=== PATIENT | male | born 1985 | race Caucasian/White ===

== ENCOUNTER 2021-02-07 11:08 | Inpatient (IN) | payer OTHER ==
[~2021-02-07] VITALS: Ht 193 cm; Wt 204.1 kg
--- NOTE | ~2021-02-07 | HC ---
[facility] [place] [address] CONSULTATION Name: ANA CABELLO JR Room #: 356-P ADM IN M.R.#: [id number] Admission: 02/07/21 Attend Phys: Khalif Xiong MD Discharge: Date of : 86 Report #: [id number] THIS REPORT FOR: cc: EDWIGE VYAS JENNIFER A. DO Smithson, David G. MD ~ DATE OF SERVICE: 02/13/2021 HISTORY OF PRESENT ILLNESS: The patient is a 35-year-old white male with a history of left fifth toe cellulitis. COVID positive. [facility], seen by Podiatry on 02/08/2021. He underwent a left fifth toe amputation including metatarsal head by Podiatry, Dr. Jeffery. He is limited to partial weightbearing of the heel in a surgical shoe. He has a prior right jqjjb-vcd-vmwi amputation with prosthesis. We are seeing him in rehabilitation medicine consultation. PAST MEDICAL HISTORY: Diabetes mellitus, severe vasculopathy, morbid obesity, noncompliance. MEDICATIONS: Please see the full medication listing. HABITS: Tobacco daily. SOCIAL HISTORY: He has been staying at his girlfriend's house. She apparently is a paid caregiver through the state. He notes that he is no longer on his good of terms with her. He has been to acute rehab at [place] in the past. REVIEW OF SYSTEMS: Did not offer any current complaints of chest pain, shortness of breath or abdominal discomfort. PHYSICAL EXAMINATION: GENERAL: He is a pleasant 35-year-old morbidly obese white male in no obvious distress. He follows basic 1-step commands, calm, and cooperative. Of note, he is 6 feet 4 inches and weighs 450 pounds. VITAL SIGNS: Temperature 36.1, pulse 74, respirations 16, blood pressure 106/51. NEUROLOGIC: He has functional range of motion of both upper extremities without obvious focal weakness. He has the old right below-knee amputation and has the stump health care aide in place and has his prosthesis. He premorbidly ambulated with a cane and his prosthesis. His left foot is dressed post-surgically. No focal calf swelling. He has been min assist with sit to stand and has ambulated 20 feet with a cane, min assist utilizing the surgical shoe and his mmscu-cxh-hgwr prosthesis. ASSESSMENT: A 35-year-old male with the following problem list: 1. Left fifth toe cellulitis, status post left fifth [place] [address] CONSULTATION Name: ANA CABELLO Room #: 356-P [facility] IN ..#: [id number] Admission: 02/07/21 Attend Phys: Khalif Xiong MD Discharge: Date of : 87 Report #: [id number] on 02/08/2021. He is partial weightbearing with heel bearing shoes. 2. COVID positive status in COVID isolation. 3. Prior right blsba-bfh-eocg amputation with right lower extremity prosthesis. 4. Diabetes mellitus. 5. Morbid obesity. 6. History of severe vasculopathy. 7. Tobacco abuse. 8. Noncompliance. PLAN: [address] acute rehab beds are tight. The patient has been to [facility] in the past. This will be checked regarding this or other therapy options. His COVID status may be a problem in this regard, but we will need to see what the regulations are as he remains in COVID isolation. Thank you for asking us to assist in this patient's care. We will continue to follow along with you. By: 0925 [id number] Clay Deluca MD /nt
--- NOTE | ~2021-02-07 | HC ---
[facility] [place] [address] CONSULTATION Name: ANA CABELLO JR Room #: 356-P ADM IN M.R.#: [id number] Admission: 02/07/21 Attend Phys: Khalif Xiong MD Discharge: Date of : 86 Report #: [id number] THIS REPORT FOR: cc: EDWIGE VYAS JENNIFER A. DO Jetmore, Allen B. MD ~ DATE OF SERVICE: 02/12/2021 WOUND CARE CONSULTATION NOTE REASON FOR CONSULTATION: Status post left fifth toe amputation with metatarsal head resection in the setting of diabetes mellitus type 2, peripheral vascular disease, cellulitis of the toe and osteomyelitis. HISTORY OF PRESENT ILLNESS: The patient is a gentleman suffering from morbid obesity and diabetes mellitus type 2 and peripheral vascular disease who is status post right below-knee amputation for diabetic foot and vascular complications. He is status post left third toe ray amputation. He is a patient of the podiatric surgeon. The patient presented to [facility] with COVID positive and a left fifth toe with extreme cellulitis and osteomyelitis. He was taken to the operating room on 02/08/[address] Slade Jeffery and underwent left fifth toe amputation with metatarsal head resection. He is currently receiving IV antibiotics, piperacillin, vancomycin followed by the podiatric surgery team. Wound care was consulted. PAST MEDICAL HISTORY: Morbid obesity, tobaccoism, peripheral vascular disease, status post right below-knee amputation, status post left fifth ray amputation, recent COVID-19, diabetic neuropathy. PAST SURGICAL HISTORY: Right below-knee amputation, left third ray amputation, left fifth toe amputation. MEDICATIONS: Include Lantus insulin. PHYSICAL EXAMINATION: GENERAL: Shows a pleasant, alert young gentleman in no distress. VITAL SIGNS: No respiratory symptoms of COVID at this time. Mucous membranes are moist. ABDOMEN: Obese. EXTREMITIES: Shows healed right below-knee amputation. Examination of the left foot shows status post left third ray amputation. Surgical dressings are removed and there is seen a fresh left fifth toe amputation with nylon suture closure. There is moderate drainage onto the dressings, which are removed. There is some dried blood, drainage on the incision, which looks relatively clean. Xeroform dressing along with Optifoam, ABD and Kerlix dressing with an Carlos are placed. [address] [address] CONSULTATION Name: ANA CABELLO Room #: 356-P [facility] IN .R.#: [id number] Admission: 02/07/21 Attend Phys: Khalif Xiong MD Discharge: Date of : 86 Report #: [id number] PLAN: We will place an order for Aquacel silver to the incision site daily, cover with 4 x 4, Kerlix gauze and Carlos. Followup will likely be by his podiatric surgeons. Wound care team will follow. By: 1153 1858 Vidal Duncan MD /stephanie
[~2021-02-07 11:08] MED LIST: ASPIRIN325 PO; BACTRIM DS TAB1 EACH PO; CELEXA40 MG PO; CEPHALEXIN 500500 M3 PO; CIPRO500 MG PO; CLEOCIN HCL150 MG PO; CUBICIN500 MG IVPB; DAPTOMYCIN500 MG IV; FLAGYL500 MG PO; GLUCOTROL5 MG PO; HUMALOG100 UNIT/1 SUBQ; HUMULIN R100 UNIT/M SUBQ; HYDROCODONE-AP1 EAC6 PO; HYDROCODONE-APA1 TA1 PO; IBUPROFEN 400400 M2 PO; LANTUS SUBQ; LANTUS100 UNIT/M SUBQ; LASIX 20 MG TAB20 MG PO; METFORMIN HCL500 MG PO; NEURONTIN600 MG PO; NICOTINE TRANSD21 M1 TOP; NORCO 10-325 T1 EACH PO; NYAMYC15 GM TOP; OXYCODONE HCL 55 MG PO; OXYCODONE HCL10 MG PO; PENICILLIN VK250 MG PO; PERCOCET 10-321 EACH PO; PROZAC20 MG PO; SEROQUEL 50 MG50 MG PO; TRAMADOL 50 MG50 MG PO; ULTRAM 50MG TAB50 MG PO; VANCOMYCIN1.5 GM/253 IV; XANAX 0.5 MG0.5 MG PO; ZOFRAN ODT4 MG PO; ZYVOX600 MG PO
[2021-02-07 11:14] VITALS: BP 136/76
[2021-02-07 11:42] LABS: ABSOLUTE NEUTROPHILS 5.1 thou/uL (1.4-8.2); BASOPHILS 0.5 % (0.0-2.0); EOSINOPHILS 2.4 % (0.0-3.0); HEMATOCRIT 41.6 % (42.0-52.0); HEMOGLOBIN 13.7 gm/dL (14.0-18.0); LYMPHOCYTES 13.8 % (24.0-44.0); MCH 27.2 pg (26.0-34.0); MCHC 32.9 g/dL (28.0-37.0); MCV 82.6 fL (80.0-100.0); MONOCYTES 6.5 % (1.0-8.0); PLATELET COUNT 221 thou/uL (150-400); POLYS 76.8 % (36.0-66.0); RBC 5.04 mil/uL (4.50-6.00); RDW 15.1 % (10.5-14.5); WBC 6.6 thou/uL (4.0-11.0)
[2021-02-07 11:58] LABS: ANION GAP 6 mmol/L (7-16); BUN 17 mg/dL (7-18); CALCIUM 8.7 mg/dL (8.5-10.1); CHLORIDE 101 mmol/L (98-107); CO2 29 mmol/L (21-32); CREATININE 1.2 mg/dL (0.7-1.3); GLUCOSE 337 mg/dL (74-106); POTASSIUM 4.5 mmol/L (3.5-5.1); SODIUM 136 mmol/L (136-145)
[2021-02-07 12:04] LABS: SGOT 17 U/L (15-37); SGPT 24 U/L (16-63); TOTAL BILIRUBIN 0.4 mg/dL (0.2-1.0); TOTAL PROTEIN 7.2 g/dL (6.4-8.2); TROPONIN-I <0.06 ng/mL (<0.06)
--- NOTE | 2021-02-07 14:03 | NUR ---
PT STATES THAT THE BED IN THE ROOM BROKE AND HIS IV CAME OUT. BED IN SAME POSITION LAST TIME THIS RN WAS IN THE ROOM. PT STATES HE WANTS AN UBER AND WOULD LIKE TO LEAVE. DR HART AT BEDSIDE NOW
--- NOTE | 2021-02-07 14:10 | NUR ---
PT NOW AGREES TO STAY. WILL RESTART IV AND RESTART VANCOMYCIN
--- NOTE | 2021-02-07 15:44 | EKG ---
[facility] [employer] [place] [address] ELECTROCARDIOGRAM REPORT Name: ANA CABELLO Room #: 170-24 ADM IN M.R.#: [id number] Admission: 02/07/21 Attend Phys: Khalif Xiong MD Discharge: Date of : 86 Report #: [id number] [facility] ED Test Date: 2021-02-07 Test Time: 14:39:10 Pat Name: ANA CABELLO Department: Room: 170 Gender: M Molding Machine Operator: munira : 1985 Requested By: Kyaw Castañeda Order Number: [id number] MD: Alexey Zarco Measurements Intervals [place] Rate: 95 P: 69 CT: 147 QRS: 64 QRSD: 85 T: 32 QT: 347 QTc: 436 Interpretive Statements Sinus rhythm Probable left atrial enlargement Low voltage, precordial leads No previous ECG available for comparison Electronically Signed On 02-07-2021 15:44:34 CDT by Alexey Zarco [email or web address] <ELECTRONICALLY SIGNED> By: Alexey Zarco MD, [facility] 02/07/21 1544 [id number] [id number] Alxeey Zraco MD, FACC /EPI
[2021-02-08 06:05] LABS: HEMATOCRIT 42.7 % (42.0-52.0); HEMOGLOBIN 14.1 gm/dL (14.0-18.0); MCH 27.6 pg (26.0-34.0); MCV 83.5 fL (80.0-100.0); RBC 5.12 mil/uL (4.50-6.00); RDW 14.1 % (10.5-14.5); WBC 4.2 thou/uL (4.0-11.0)
[2021-02-08 06:25] LABS: APTT 27.4 Seconds (24.5-32.8); INR 0.95; PROTIME 10.4 Seconds (10.5-12.1)
[2021-02-08 06:26] LABS: CALCIUM 8.5 mg/dL (8.5-10.1); CREATININE 1.1 mg/dL (0.7-1.3); MAGNESIUM 2.2 mg/dL (1.8-2.4)
[2021-02-08 06:39] LABS: POTASSIUM 5.7 mmol/L (3.5-5.1)
[2021-02-08 07:15] VITALS: BP 137/79
[2021-02-08 07:25] VITALS: BP 128/68
--- NOTE | 2021-02-08 10:48 | NUR ---
AD,ISSION NOTE: PT ADMITTED ON 356, ALERT AND ORIENTED X4, DENIES ANY CHEST PAIN. HAS NUMBNESS AND TINGLING DUE TO DIABETES. LINE SUPERVISOR PLACED, SR. ON ROOM AIR, NO SIGNS OF DISTRESS NOTED. ENHANCED PRECAUTIONS IN PLACE. CONSENTS SIGNED. PT ORIENTED TO ROOM. ASSESSMENT AND ADMISSION COMPLETED. RIGHT LEG AMPUTATED BELOW THE KNEE, ALSO HAS 3RD LEFT TOE AMPUTATED. OSTEOMYELITIS ON THE LEFT 5TH TOE AND BLISTER ON THE RIGHT OUTER THIGH. PICTURES TAKEN. MORPHINE GIVEN FOR BACK AND TOE PAIN. CALL LIGHT AND TABLE WITHIN REACH. PT DENIES ANY NEED HILDA, WILL CONTINUE TO MONITOR.
[2021-02-08 12:00] VITALS: BP 157/82
--- NOTE | 2021-02-08 13:21 | NUR ---
RD consult related to obesity. Admit with redness, swelling toe, osteomyelitis and will likely require ampuation. Pt COVID+, unable to speak with. Has strong hx of noncompliance with his medical care, including poor diabetes control with complications. Hx right BKA, +tobacco use, class III extreme obesity. NPO at this time. Recommend advance to 2000 carb controlled diet after procedure and start terence bid.
[2021-02-08 14:42] LABS: CALCIUM 8.4 mg/dL (8.5-10.1); CREATININE 1.1 mg/dL (0.7-1.3)
[2021-02-08 14:43] LABS: POTASSIUM 4.7 mmol/L (3.5-5.1)
--- NOTE | 2021-02-08 15:09 | NUR ---
INITIAL ASSESSMENT: Received consult for discharge planning. Pt was at [facility] for outpatient appt with Dr. Jeffery at the [facility]. Pt was sent to the ER for evaluation for osteomyeltis. Pt had positive COVID test in the ER yesterday. Pt has not been vaccinated. Pt placed in Enhanced Isolation. Pt is afebrile and not requiring O2. Pt is on IV abx and IV steroids. ID consulted. Pt to have left 5th toe amputation this afternoon. PT/OT ordered to evaluate pt after surgery. Pt with hx right BKA and 3rd left toe amputation. SW spoke with pt via phone. Introduced role of SW. Pt is alert/orientated x 4. Pt reports he lives at home with his girlfriend, who is his paid caregiver through [place]. Pt has 3 hours and 15 minutes per day of caregiver services through [employer]. Pt has a knee scooter, cane, walker and w/c at home. Pt's PCP is Dr. Bre Steel in [place], [place]. Pt has used HH and home infusion in the past. Pt has gone to outpatient infusion at [facility] and has been to the inpt acute rehab unit at [place] in the past. Pt states he is agreeable with post-acute services if needed. Plan is for pt to discharge home when medically stable. YURI is following to assist as needed with discharge planning.
[2021-02-08 15:53] VITALS: BP 140/95
--- NOTE | 2021-02-08 17:33 | NUR ---
Pt taken down to surgery.
[2021-02-08 19:43] VITALS: BP 138/85
[2021-02-08 21:54] VITALS: BP 124/84
--- NOTE | 2021-02-08 23:35 | NUR ---
PT RETURNED FROM SURGERY AT CHANGE OF SHIFT. PT CURSING YELLING HOSTILE ON PHONE TO SOMEONE. PT CALM AND APPROPRIATE WITH NURSING STAFF. PT DENIES FEELING IN L FOOT DUE TO NEUROPATHY. L FOOT WITH EDEMA, ANIKA WRAP SURGICAL DRESSING. L FOOT ELEVATED IN BED. PT IS OBESE, RBKA, LUNGS DIMINISHED. PT ORDERING FOOD ON PHONE. PT COMPLIANT WITH MEDS AND HS SNACK. PT DID HAVE FOOD BROUGHT IN AND DELIVERED FROM FRIEND. PT REDIRECTED BY SECURITY TO LOWER VOICE TONE WHEN ON PHONE WITH GIRLFRIEND, OTHER PATIENTS COMPLAINING. PT TALKING TO HIS FRIEND ABOUT HAVING HIS HOUSE BLOWN UP SO GIRLFREIND CAN NOT USE HIM FOR PAYING FOR ALL OF THE BILLS FOR HER AND HER DAUGHTER. PT STATED HIS GIRLFRIEND IS NOT ANSWERING HER PHONE, DISCUSSED HER PREVIOUS AFFAIRS AND USING HIS DRUGS AND INVITING PEOPLE OVER THAT HE DOES NOT APPROVE OF. PT IS LABILE ANGRY YELLING CURSING THREATENING, THEN TEARFUL AND CRYING. PRN FOR ANXIETY PROVIDED. PT REPORTS CHRONIC BACK PAIN AND NEUROPATHY PAIN, REQUESTED MORPHINE AND PROVIDED.
[2021-02-09 04:34] VITALS: BP 143/76
--- NOTE | 2021-02-09 05:49 | NUR ---
L FOOT REMAINS DRY AND WRAPPED IN GAUZE, PT MAINTAINED ELEVATION OF FOOT. PT DENIES BEING ABLE TO FEEL TOUCH DUE TO NEUROPATHY. GREAT TOE CONTINUES WITH POSITIVE CIRCULATION CHECK.
[2021-02-09 08:08] VITALS: BP 142/98
[2021-02-09 11:48] VITALS: BP 173/91
--- NOTE | 2021-02-09 12:15 | HC ---
[facility] [place] [address] CONSULTATION Name: ANA CABELLO JR Room #: 356-P ADM IN M.R.#: [id number] Admission: 02/07/21 Attend Phys: Khalif Xiong MD Discharge: Date of : 86 Report #: [id number] THIS REPORT FOR: cc: EDWIGE VYAS JENNIFER A. DO Barry, Joseph W. MD ~ DATE OF SERVICE: 02/08/2021 INFECTIOUS DISEASE CONSULTATION ATTENDING PHYSICIAN: Dr. Xiong. REASON FOR EVALUATION: Left fifth toe chronic osteomyelitis, also positive COVID-19 infection. HISTORY OF PRESENT ILLNESS: Chart reviewed. The patient examined. This is a 35-year-old known to myself has longstanding diabetes mellitus that has been not well controlled, although improved more recently, has had a previous right below-knee amputation. He developed an injury sustaining a wound involving his lateral aspect of his left fifth toe within the last 2-3 weeks. He generally was improving. He felt it until he developed a cough and was confirmed to have COVID-19 infection. Due to progressive inflammatory changes noted in the toe, he was evaluated in the Emergency Room, was found to have elevated inflammatory markers as well as MRI evidence of changes suspicion of osteomyelitis involving the fifth toe, also found to have a positive coronavirus testing. At this point, denies significant pulmonary related complaints. He is scheduled to undergo operative toe amputation later today. Blood cultures collected at the time of admission are sterile thus far. He was empirically started on combination therapy with Zosyn and vancomycin. Again, denies any GI-related complaints at this point. ALLERGIES: None known. MEDICATIONS: Include gabapentin, dexamethasone, famotidine, vancomycin, Zosyn, zinc, p.r.n. analgesics. PAST MEDICAL HISTORY: As described above, diabetes mellitus has been complicated by peripheral neuropathy, previous chronic ulcers with chronic osteomyelitis, status post right below-knee amputation of third left toe as well, chronic anemia, morbid obesity. SOCIAL HISTORY: Smokes cigarettes, uses marijuana on a daily basis. Occasional ethanol. FAMILY HISTORY: Noncontributory. [facility] [address] [place] [address] CONSULTATION Name: ANA CABELLO Room #: 356-P [facility] IN ..#: [id number] Admission: 02/07/21 Attend Phys: Khalif Xiong MD Discharge: Date of : 86 Report #: [id number] REVIEW OF SYSTEMS: Otherwise, unremarkable 10-point review of systems. PHYSICAL EXAMINATION: GENERAL: He is alert, cooperative, mild to moderate distress. He is not dyspneic at rest. He is morbidly obese. VITAL SIGNS: Temperature 98.2, pulse 97, respirations 18, blood pressure 140/95. SKIN: Warm, dry, no rashes. HEENT: Normocephalic. Extraocular muscles intact. NECK: Supple. LUNGS: Diminished overall, few crackles at the bases. HEART: Distant, regular, borderline tachycardic. I do not appreciate any murmur. ABDOMEN: Obese, firm, nontender. EXTREMITIES: Right above-knee amputation generally be healed. There is a superficial eschar laterally. In the left foot fifth toe, there is some moderate degree of inflammation noted. There appears to be a puncture type lesion over the lateral aspect. There is no expressible material at this point. GENITOURINARY AND RECTAL: Deferred. LABORATORY DATA: Electrolytes: Sodium 141, potassium 4.7, chloride 103, bicarbonate is 20, anion gap of 10, BUN and creatinine 18 and 1.1, glucose is 321. Sed rate of 52. Blood cultures sterile thus far. CRP elevated at 56.9. CBC: White count of 4.2, H and H 14.1 and 42.7, platelets of 228. Arterial Doppler evidence of focal stenosis. MRI noted extended inflammatory changes noted throughout the extent of the fifth toe. Coronavirus testing was positive. ASSESSMENT AND PLAN: 1. Left fifth toe osteomyelitis, pending toe amputation. 2. Diabetes mellitus with severe sequelae including peripheral neuropathy, previous right below-knee amputation. 3. Coronavirus infection without evidence of respiratory distress and normal radiograph. We will plan to continue empiric therapy with combination of antibacterials at this point. We will follow up postoperatively. We will add incentive spirometry. Continue therapy with corticosteroids. We will hold on additional therapy such as remdesivir with a lack of early clinical evidence of acute pneumonitis, monitor expectantly, certainly could add to the regimen as needed. <ELECTRONICALLY SIGNED> By: Yeison Herrmann MD 02/09/21 1215 1508 [id number] Yeison Herrmann MD /nt
--- NOTE | 2021-02-09 15:40 | NUR ---
SW reviewed chart and spoke with nursing and attending physician. Pt remains in Enhanced Isolation due to COVID. Pt is POD#1 left 5th toe amputation. Pt remains on IV abx. Pt asking to speak with SW about discharge. SW placed call to pt's cell phone. Pt was very upset and stating he wanted to leave AMA because of some issues with his mother. SW offered to call pt's mother. Per pt, she had called the police and stated to them that pt is suicidal. Pt states that she is trying to get him into a mental health facility. Pt states that he will not allow SW to speak with his mother without being able to listen to our conversation. Pt called his mother, while on phone with SW to allow a 3-way conversation. Pt's mother did not answer. Voice message left. Pt became very agitated and upset during conversation. SW discussed case with attending physician and Director of Case Mgmt. Psych consult ordered to evaluate pt. Pt did calm down and is not cooperating with staff. PT/OT to be ordered to evaluate pt for discharge needs. Will need clarification regarding weight bearing status. YURI is following to assist as needed with discharge planning.
[2021-02-09 15:49] VITALS: BP 158/88
--- NOTE | 2021-02-09 17:36 | NUR ---
assumed care of pt at 0700. pt emotionally labile, regularly yelling on phone with family about matters he is not willing to discuss with staff since we cannot help him. only willing to hospice social worker. largely polite and cooperative with staff, but at times threatening to leave AMA since his "mother gives me no choice". physician aware. psych consulted. OK'd by Dr Jeffery to bear weight on heel with surgical shoe to take shower. Waiting on shoe to arrive from central service. IVF infusing per order. psych to resume patients home psych meds. wcm.
[2021-02-09 20:12] VITALS: BP 141/82
[2021-02-10 03:58] VITALS: BP 111/79
--- NOTE | 2021-02-10 05:57 | NUR ---
PT IS A/0X4. MOODS UP AND DOWN. COMPLAINTS ABOUT IVF GTT THEN STATING HIS IV SITE HURTING. PT REMOVED PIV. GOT SUPPLIES TO REPLACE TO ALLOW FOR POC. PT STATES HE WANTS TO SLEEP AND BE LEFT ALONE. DURING HOURLY ROUNDING PT UNWILLING TO ALLOW FOR IV PLACEMENT. COVID+. PT COMPROMISES OWN MEDICAL CARE AND IS UNWILLING TO HELP.
[2021-02-10 08:13] VITALS: BP 148/92
[2021-02-10 11:14] VITALS: BP 152/84
[2021-02-10 15:24] VITALS: BP 150/89
--- NOTE | 2021-02-10 15:55 | NUR ---
YURI reviewed chart and spoke with nursing and attending physician. Pt remains in Enhanced Isolation due to COVID. Pt is afebrile and not requiring O2. Pt is on IV abx and IV steroids. Psych consulted. SW spoke with pt via phone to discuss discharge plan. Pt states that he is working with his rn case manager through [employer] to find housing. SW discussed discharge plan from the hospital and pt states he is agreeable with post-acute placement. Pt states he would like to have therapy. SW discussed options: 5N v. SNF placement. SW explained need for 10-14 days of isolation prior to going to a SNF. No weekend discharge planned. Pt needs therapy evals and then 5N can eval pt on Saturday to determine if he will be a candidate. YURI updated attending physician. YURI is following to assist as needed with discharge planning.
[2021-02-10 19:53] VITALS: BP 159/68
--- NOTE | 2021-02-10 22:03 | NUR ---
PROVIDER CAPITAL CAMPAIGN FUNDRAISER NOTIFIED OF ELEVATED BS AND THAT SCALE, LANUTS AND METFORMIN PROVIDED. ALSO THAT PT CONTINUES TO EAT ICE CREAM AND SODA.
--- NOTE | 2021-02-10 22:43 | NUR ---
PT SITITNG UP IN BED, JOKING LAUGHING ON PHONE. PT CHEERFUL PLEASANT BUT LOUD WHEN TALKING WITH STAFF. LUNGS DIMINISHED. OBESE. RBKA, L FOOT ANIKA WRAP DRY INTACT, EDEMA GREAT TOE, POSITIVE CIRCULATION. IVF INTACT. PT REQUESTING SNACK. PT STATED HE NEEDS PLACEMENT BEFORE BEING DISCHARGED. FSBS ELEVATED AND TREATED, PROVIDER NOTIFIED. PT EDUCATED TO CALL FOR ASSISTANCE.
[2021-02-11 07:41] VITALS: BP 139/82
--- NOTE | 2021-02-11 11:01 | NUR ---
ASSUMED PT CARE AT SHIFT CHANGE, PT STATES HE FEELS MORE CALM TODAY. STATES HIS HOME SITUATION IS STILL 'NOT GOOD'. STATES PAIN IS CONTROLLED, DID NOT GET GOOD SLEEP. WISHES TO CONTINUE WORKING WITH SOCIAL WORK TO TRY TO HELP DC. NO OTHER COMPLAINTS OR CONCERNS AT THIS TIME. COMPLIANT WITH MORNING PRESCRIPTIONS EXCEPT DENIED NICOTINE PATCH.
[2021-02-11 11:04] VITALS: BP 161/73
[2021-02-11 16:09] VITALS: BP 149/101
--- NOTE | 2021-02-11 16:10 | NUR ---
NO ORDERS FOR WOUND CARE. THIS RN UNABLE TO GET DR TRAMMELL RECOVERY ANALYST/ANSWERING SERVICE. PER DR HART, OK TO CONSULT WOUND CARE. DR HART ALSO INFORMED OF PT BG.
[2021-02-11 20:13] VITALS: BP 200/91
--- NOTE | 2021-02-11 21:11 | NUR ---
PT DID NOT HAVE VANC TROUGH DONE AT NOON DOSE. DONE PRIOR TO 2100 DOSE, BY NURSE. CEO AND FOUNDER NOT IN HOUSE.
--- NOTE | 2021-02-12 01:51 | NUR ---
PT SITTING UP IN BED. CHEERFUL TALKING ON PHONE. ORDERING FOOD. L FOOT DRESSING INTACT, GENERALIZED EDEMA OBESE, LLE TOES FOOT EDEMATOUS, POSITIVE CIRCUTLATION CHECK. PT VERBALIZED PAIN WITH PHYSICAL THERAPY EARLIER IN DAY. PT REPORTED INCREASE IN BP DUE TO STRESS. PRN FOR ANXIETY PROVIDED. PRN FOR PAIN REQUESTED LLE. CALLS FOR ASSISTANCE.
[2021-02-12 04:10] VITALS: BP 145/86
[2021-02-12 07:51] VITALS: BP 119/61
[2021-02-12 11:38] VITALS: BP 152/92
[2021-02-12 16:32] VITALS: BP 144/86
[2021-02-12 16:34] VITALS: BP 144/86
--- NOTE | 2021-02-12 18:13 | NUR ---
PT PLEASANT TODAY, WAS PLEASED WOUND CARE PHYSICIAN WAS ABLE TO VISIT & CHANGE WOUND. [employer] AG ORDERED, PLACED IN STOCK DRIVER. DAILY DRESSING CHANGE. PT CONTINUES TO ORDER FOOD OR HAVE SNACKS DELIVERED BY FRIENDS. INSULIN SCALE INCREASED PER PROTOCOL. PT REPORTS DIARRHEA, PRN IMMODIUM GIVEN. IV DRESSING CHANGED, WRAPPED WITH COBAN PER PT REQUEST.
[2021-02-12 19:48] VITALS: BP 147/92
[2021-02-13 04:35] VITALS: BP 141/90
--- NOTE | 2021-02-13 06:12 | NUR ---
PROGRESS PT PLEASANT AND COOPERATIVE, DENIED NEED FOR PAIN MEDICATION STATES HE WILL CALL IF NEEDED. VOIDING QS, UP AD TIANNA VSS, TELE INTACT READING SR/ST. LUNGS CLEAR. ABDOMEN SOFT NO MORE DIARRHEA TONIGHT. VOIDING QS LARGE AMOUNT OF CLEAR YELLOW URINE. IV ANTIBIOTICS ADMINISTERED ORDERED. DRESSING TO LEFT FOOT C/D/I. ACCUCHECKS AND SSI CONTINUE.
[2021-02-13 07:45] VITALS: BP 106/51
[2021-02-13 11:09] VITALS: BP 138/86
--- NOTE | 2021-02-13 11:11 | PATH ---
[facility] [address] [place] [address] PATHOLOGY RPT PROCEDURE Name: ANA CABELLO JR Room #: 356-P ADM IN M.R.#: [id number] Admission: 02/07/21 Date of : 87 Discharge: Report #: [id number] Path Case #: [id number] LCA Accession Number: [id number] . 01 Material submitted: . PART A: toe - LEFT FOOT 5TH TOE. Modifiers: left, fifth PART B: foot - 5TH METATARSAL HEAD. Modifiers: left, fifth, METATARSAL . 01 Clinical history: . AMPUTATION OF TOES OSTEOMYELITIS LEFT FOOT CELLULITIS,COVID . 02 Diagnosis: A. Toe, left foot fifth toe, amputation: - Marked acute inflammation associated with osteonecrosis, consistent with acute osteomyelitis. - Skin and subcutaneous tissue with reactive changes. - Skin, bone and soft tissue margin viable and unremarkable. . B. Bone, fifth metatarsal head, resection: - Fragments of reactive bone without any acute inflammation. (IUV/db; 02/10/2021) LBQ 02/10/2021 1707 Local . 02 Electronically signed: . Samantha Martínez MD, Pathologist NPI- [id number] . 01 Gross description: . A. The specimen is received in formalin, labeled "Ana Cabello Jr., left fifth toe". Received is an amputated digit measuring 4.8 x 3.2 x 2.5 cm in greatest dimensions. The bone margin is smooth and concave in appearance, consistent with disarticulation. The bone and soft tissue margins are inked black. The nail is present displaying a pale araujo and grossly unremarkable appearance. On the lateral aspect of the specimen, there is a well-defined light araujo lesion measuring 1.0 x 0.8 cm, which is 1.2 cm from the closest skin margin. Within the lesion there is a circular defect measuring 0.4 x 0.4 cm, which probes down to the underlying bone. The specimen is submitted phlebotomy services representative as follows: . A1 horizontal cross-section through lesion, to include underlying bone, following decalcification A2 longitudinal cross-section through bone margin, following decalcification. . B. The specimen is received in formalin, labeled "Ana Cabello Jr., fifth [address] [address] PATHOLOGY RPT PROCEDURE Name: ANA CABELLO JR Room #: 356-P ADM IN M.R.#: [id number] Admission: 02/07/21 Date of : 87 Discharge: Report #: [id number] Path Case #: [id number] metatarsal head". The source is further designated on the demographic sheet as, "left foot". Received is an irregular segment of bone measuring 2.3 x 1.9 x 0.8 cm in greatest mentions. One margin is blunt in appearance, consistent with transection, and is inked black. The opposite margin is smooth to irregular in contour and predominately convex in appearance, consistent with disarticulation. Slot Router cross-sections are submitted in cassette B1, following decalcification. (CAA; 02/09/2021) QAC/QA 02/09/2021 1309 Local . 02 Pathologist provided ICD-10: M87.878, M89.9, L03.032 . 02 CPT . 544163, 362315, 751728, 452380 Specimen Comment: A courtesy copy of this report has been sent to [phone] Specimen Comment: [phone], Specimen Comment: Report sent to , DR HART / DR VYAS Performed at: [address], [place], [place] [id number] MD Davi Schmidt MD Phone: [phone] Performed at: [address] [id number] MD Samantha Martínez MD Phone: [phone]
--- NOTE | 2021-02-13 13:56 | NUR ---
DISCHARGE NOTE: YURI reviewed chart and spoke with nursing and attending physician. Pt remains in Enhanced Isolation due to COVID. Pt is afebrile and not requiring O2. Pt is on IV abx. Wound care consulted. YURI discussed case with [facility] director of pediatric rehabilitation, who states they are able to accept pt. Pt will remain in his room on 3[facility] for acute rehab services. Pt is ready to d/c to rehab status today. YURI spoke with pt via phone. Provided update to pt regarding [facility] acceptance. Pt is agreeable with plan to do rehab at the hospital. Pt states he is working on finding housing. Pt states on Feb 21, he will have the funds to go stay in a hotel if housing is not in place. Pt is working with [facility] on finding housing. YURI explained that team conferences are held on Saturday afternoons. Rehab unit CM will follow up with pt regarding discharge timeframe and discharge needs. YURI updated pt's nurse regarding pt's change to rehab status. YURI is available to assist should needs arise.
[2021-02-13] MEDS ORDERED: ZINC SULFATE50 MG PO (15:15)
[2021-02-13] MEDS ORDERED: LORAZEPAM 0.50.5 MG PO (15:15)
[2021-02-13] MEDS ORDERED: ACETAMINOPHEN325 M1 PO (15:15)
[2021-02-13] MEDS ORDERED: VITAMIN D325 MC1 PO (15:15)
[2021-02-13] MEDS ORDERED: HUMALOG100 UNIT/1 SUBQ (15:15)
[2021-02-13] MEDS ORDERED: VANCOMYCIN1.25 GM/12 IV (15:15)
[2021-02-13] MEDS ORDERED: ENOXAPARIN40 MG/0.1 SUBQ (15:15)
[2021-02-13] MEDS ORDERED: WELLBUTRIN SR100 MG PO (15:15)
[2021-02-13] MEDS ORDERED: PEPCID20 MG PO (15:15)
[2021-02-13] MEDS ORDERED: NICOTINE1 EACH TRANSDERM (15:15)
[2021-02-13] MEDS ORDERED: MEDROLDOSEPACK PO ×4 (15:15)
[2021-02-13] MEDS ORDERED: LOPERAMIDE 2 MG2 M1 PO (15:15)
[2021-02-13] MEDS ORDERED: EFFEXOR XR37.5 MG PO (15:15)
[2021-02-13] MEDS ORDERED: HYDROCODON-ACE1 EAC7 PO (15:15)
[2021-02-13] MEDS ORDERED: ZOSYN 3.373.375 GM/1 IV (15:15)
[2021-02-13] MEDS ORDERED: ACEROLA C500 MG PO (15:15)
[2021-02-13 15:48] VITALS: BP 138/86
== END 2021-02-13 17:34 | DRG 853 ==
LOC: ER 11:08 → EROBS 13:23 → 3W 13:23
PROVIDERS: Emergency Medicine; ADMIT Internal Medicine; ATTEND Internal Medicine
PROC: 0Y6N0ZF Detachment at Left Foot, Partial 5th Ray, Open Approach (ICD-10-PCS; principal; 2021-02-08)
DX: A41.9 Sepsis, unspecified organism (principal); U07.1 COVID-19; M86.8X7 Other osteomyelitis, ankle and foot; Z68.43 Body mass index [BMI] 50.0-59.9, adult; M31.9 Necrotizing vasculopathy, unspecified; E11.69 Type 2 diabetes mellitus with other specified complication; L03.032 Cellulitis of left toe; E11.42 Type 2 diabetes mellitus with diabetic polyneuropathy; F17.210 Nicotine dependence, cigarettes, uncomplicated; E11.51 Type 2 diabetes mellitus with diabetic peripheral angiopathy without gangrene; E66.01 Morbid (severe) obesity due to excess calories; F41.9 Anxiety disorder, unspecified; F12.90 Cannabis use, unspecified, uncomplicated; Z89.511 Acquired absence of right leg below knee; Z79.4 Long term (current) use of insulin; Z79.899 Other long term (current) drug therapy; Z91.14 Patient's other noncompliance with medication regimen
CPT/HCPCS: 10879; 50101; 50386; 50951; 56524; 56527; 58585; 62110; 62900

== ENCOUNTER 2021-02-13 15:35 | Inpatient (IN) | payer OTHER ==
[~2021-02-13] VITALS: Ht 193 cm; Wt 205.5 kg
--- NOTE | ~2021-02-13 | H ---
[facility] [place] [address] HISTORY AND PHYSICAL Name: ANA CABELLO JR Room #: 356-P ADM IN M.R.#: [id number] Admission: 02/13/21 Attend Phys: Clay Deluca MD Discharge: Date of : 87 Report #: [id number] THIS REPORT FOR: cc: EDWIGE VYAS JENNIFER A. DO Smithson,Clay Kerns MD ~ DATE OF SERVICE: 02/13/2021 HISTORY OF PRESENT ILLNESS: The patient is a 35-year-old male who has a history of left fifth toe cellulitis. He originally was admitted to [facility] on 02/07/2021. He was noted to be COVID positive. He was seen by podiatry on 02/08/2021 and underwent a left fifth toe amputation including the metatarsal head by podiatry, Dr. Samuel. He was limited to partial weightbearing of the heel in a surgical shoe. He has a prior right dtdml-[id number]-jeos amputation with prosthesis. He has had a significant functional decline from his premorbid status and was admitted for acute in-hospital inpatient rehabilitation. PAST MEDICAL HISTORY: Includes diabetes mellitus, severe vasculopathy, morbid obesity, noncompliance. MEDICATIONS: Please see the full medication listing. HABITS: Tobacco daily. SOCIAL HISTORY: He had been staying at his girlfriend's house, but they apparently had a falling out. He has had a paid caregiver through the [facility]. He is planning on moving into a motel. Apparently has a check that is coming on 02/21/2021. REVIEW OF SYSTEMS: No complaints of chest pain, shortness of breath, abdominal discomfort. PHYSICAL EXAMINATION: GENERAL: The patient was seen on 02/13/2021. He is a pleasant 35-year-old morbidly obese male, in no obvious distress, follows basic commands, cooperative, 6 feet 4 inches and weighs 450 pounds. VITAL SIGNS: Stable. HEENT: Appeared to be benign. NEUROLOGIC: Cranial nerves are grossly intact. He does have significant morbid obesity. CHEST: Sounded clear to auscultation. CARDIAC: Regular rate and rhythm. ABDOMEN: Bowel sounds positive, nontender. GENITOURINARY AND RECTAL: Deferred. EXTREMITIES: Functional range of motion of both upper extremities without obvious focal weakness. Tone appeared to be intact. 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 He premorbidly ambulated with a cane and his prosthesis. Left foot is dressed post-surgically. No focal calf swelling. The patient has been min assist coming to stand and has ambulated a short distance in the surgical shoe with his below-knee prosthesis and utilizing a cane. ASSESSMENT: A 35-year-old white male with the following problems: 1. Left fifth toe cellulitis, status post left fifth toe amputation by podiatry on 02/08/2021. He is partial weightbearing with heel bearing shoe. 2. Generalized debilitation and weakness. 3. COVID positive status in COVID isolation. 4. Prior right below-knee amputation with right lower extremity prosthesis. 5. Diabetes mellitus. 6. Morbid obesity. 7. History of severe vasculopathy. 8. Tobacco abuse. 9. Noncompliance. PLAN: The patient has been admitted for acute in-hospital inpatient rehabilitation. Please see the above previous and current functional status. As far as risk of complications, he has multiple medical comorbidities as noted above. Initial plan of care involves the interdisciplinary acute inpatient rehabilitation program. Measurable functional goals would be for the patient to become modified independent with transfers, mobility, ADLs, so that he can hopefully return to a home setting that will be arranged for that he is involved in arranging as well with case management. Prognosis is reasonably good with estimated length of stay probably around 7-10 days, potentially longer as warranted. Potential barriers would include his multiple medical comorbidities and decreased functional status. The patient meets diagnostic criteria for an acute in-hospital inpatient rehabilitation stay. He does meet the medical necessity criteria and we will have the [employer] sales consultant physicians follow. He does have the tolerance for therapies and has appropriate discharge goals back to the home setting. By: [id number] Clay Deluca MD /nt
--- NOTE | ~2021-02-13 | PLAN ---
[facility] [place] [address] REHAB UNIT PLAN OF CARE Name: ANA CABELLO JR Room #: 356-P ADM IN M.R.#: [id number] Admission: 02/13/21 Attend Phys: Clay Deluca MD Discharge: Date of : 87 Report #: [id number] THIS REPORT FOR: cc: EDWIGE VYAS JENNIFER A. DO Smithson,Clay Kerns MD ~ DATE OF SERVICE: 02/15/2021 PROGRESS NOTE/OVERALL PLAN OF CARE HISTORY OF PRESENT ILLNESS: The patient was seen back today in followup. He is in no distress. Temperature 36.7, pulse 80, respirations 16, blood pressure 159/90. He remains in strict COVID isolation. He is in reasonable spirits. His left foot is dressed. Cooperative. He has been working in therapies with transfer standby assistance; gait standby assistance, 32 feet with a front-wheeled walker. In occupational therapy, upper body dressing is supervision with lower body dressing with min assist. ASSESSMENT: 1. Left fifth toe cellulitis, status post amputation 02/08/2021, heel bearing only. 2. COVID positive status. 3. History of right below-knee amputation with right lower extremity prosthesis. 4. 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 5. Morbid obesity. 6. Peripheral neuropathy with severe vasculopathy. 7. Tobacco abuse. 8. Noncompliance. PLAN: The overall plan of care is based on the pre-admit screen and information garnered from therapy assessments. 1. Estimated length of stay is going to be next Saturday, 02/21. 2. Medical prognosis reasonably good. 3. Anticipated interventions includes the interdisciplinary acute inpatient rehabilitation program. 4. Anticipated functional outcomes would be for the patient to become modified independent with basic transfers, mobility and ADLs, so he could hopefully return to a home setting. 5. Discharge destination at this point is unknown. He is currently homeless, but is assessing his options. He apparently gets a check in on the and may be going to a hotel. 6. Expected therapy by discipline includes PT and OT 1-1/2 hours per day each, 5 days a week throughout the duration of the acute inpatient rehabilitation stay. [address] [address] REHAB UNIT PLAN OF CARE Name: ANA CABELLO Room #: 356-P [facility] IN [facility]#: [id number] Admission: 02/13/21 Attend Phys: Clay Deluca MD Discharge: Date of : 87 Report #: [id number] ADDENDUM: The patient's prognosis for significant practical improvement within a reasonable period of time appears good. Given the patient's complex medical condition and risk of further medical complication, rehabilitation services could not be safely provided at a lower level of care such as a senior care facility. By: [id number] Clay Deluca MD /stephanie
[~2021-02-13 15:35] MED LIST changes: +ACEROLA C500 MG PO; +ACETAMINOPHEN325 M1 PO; +EFFEXOR XR37.5 MG PO; +ENOXAPARIN40 MG/0.1 SUBQ; +HYDROCODON-ACE1 EAC7 PO; +LOPERAMIDE 2 MG2 M1 PO; +LORAZEPAM 0.50.5 MG PO; +MEDROLDOSEPACK PO; +NICOTINE1 EACH TRANSDERM; +PEPCID20 MG PO; +VANCOMYCIN1.25 GM/12 IV; +VITAMIN D325 MC1 PO; +WELLBUTRIN SR100 MG PO; +ZINC SULFATE50 MG PO; +ZOSYN 3.373.375 GM/1 IV
[2021-02-13 20:35] VITALS: BP 138/78
--- NOTE | 2021-02-13 22:49 | NUR ---
PT RESTING IN BED WATCHING TV. VERY HAPPY AND TALKATIVE. LUNGS DIMINISHED. OBESE, GENERALIZED EDEMA. LLE TOE EDEMA +1. DRESSING DRY AND INTACT. PT PROVIDED HS SNACK. IV INFILTRATED. ZOSYN AND ELIZABETHO NOT COMPLETED. PT PREVIOUSLY HAD IV PLACED BY IV TEAM, WILL HAVE DAY SHIFT CONTACT.
[2021-02-14 02:52] LABS: HEMATOCRIT 39.6 % (42.0-52.0); HEMOGLOBIN 12.8 gm/dL (14.0-18.0); MCH 27.2 pg (26.0-34.0); MCHC 32.3 g/dL (28.0-37.0); MCV 84.1 fL (80.0-100.0); RBC 4.72 mil/uL (4.50-6.00); RDW 14.9 % (10.5-14.5); WBC 11.8 thou/uL (4.0-11.0)
[2021-02-14 03:12] LABS: CALCIUM 8.9 mg/dL (8.5-10.1); CREATININE 1.1 mg/dL (0.7-1.3); POTASSIUM 4.5 mmol/L (3.5-5.1)
[2021-02-14 03:30] VITALS: BP 150/88
[2021-02-14 07:10] VITALS: BP 135/68
--- NOTE | 2021-02-14 09:03 | NUR ---
Nutrition: consult for supplements. S/p lt 5th toe amputation, physician noted some wound dehisence. Appears pt was discharged yesterday and then readmitted. Hx of rt BKA and non-compliance; notes of pt eating a lot of snacks including ice cream and soda. BG 200-400. Meds: solumedrol, vit C, vit D, pepcid, insulin, metformin, zinc. Wt up a few pounds from admit last week; class III morbid obesity. BUN 19, no recent albumin. Will send Brandon BID. Pt does not appear at significant nutrition risk at this time.
--- NOTE | 2021-02-14 12:33 | NUR ---
Team meeting, recommendation, refused shower with female OT. Chronic pain in his back and in foot. IV ABX. partial weight bearing left toe amp. hx of right bka. Homeless until get paid on february 21 to [facility]. HH ( pt, nursing for wound care,) he will need to resume cares with [facility]. He will need to get his dme equip from his ex-girlfriend's home. DC 02/21/21
[2021-02-14 14:01] LABS: FOLIC ACID 8.8 ng/mL (8.6-58.9)
[2021-02-14 16:43] VITALS: BP 148/93
[2021-02-14 20:40] VITALS: BP 130/82
--- NOTE | 2021-02-14 22:05 | NUR ---
PT RESTING IN BED WATCHING COMPUTER, TALKATIVE CHEERFUL. L FOOT DRESSING DRY AND INTACT, EDEMA +1. PT ORDERED OUTSIDE FOOD. LUNGS DIMINISHED.
[2021-02-15 06:06] LABS: GLYCOHEMOGLOBIN (HGB A1C) 9.9 % (4.8-5.6)
[2021-02-15 07:40] VITALS: BP 159/90
--- NOTE | 2021-02-15 13:54 | NUR ---
CARE ASSUMED THIS AM, ALERT AND ORIENTED X4, DENIES NAUSEA AND VOMITTING. PT CONTINUE TO BE ON ROOM AIR, NO SIGNS OF DISTRESS. REHABD STATUS, CONTINUE TO BE ON IV ABX. FALL PRECAUTIONS IN PLACE. DNEIES ANY NEEDS AT MOMENT, WILL CONTINUE TO TO MONITOR.
--- NOTE | 2021-02-15 23:13 | NUR ---
CONTINUES TO HAVE SIGNIFICANT PAIN TO LEFT FOOT AND TOE AREA. HIS PO ANALGESIC IS EFFECTIVE IN CONTROLLING THE PAIN. HE IS HAVING SNACKS DELIVERED TONIGHT FROM [employer]. HE HAS BEEN TOLD THAT THIS IS CONSIDERED JUNK FOOD. HE IS WANTING TO EAT WHAT HE WANTS. HE EXPRESSED CONCERN ABOUT HIS PLACEMENT
--- NOTE | 2021-02-16 02:33 | NUR ---
PT WITH MANY REQUESTS TONIGHT. HE HAS BEEN RELEASED FROM [facility]. WANTING TO KNOW IF HE CAN HAVE VISITORS. CONTINUES ON IV ANTIBIOTICS. SCHEDULED ANALGESIC EFFECITVE FOR PAIN CONTROL. HE IS CONCERNED ABOUT HIS PLACEMENT PLAN FOR DISCHARGE. HE CONTINUES TO EAT WITHOUT REGARD TO HIS BLOOD GLUCOSE CONTROL. HE ATE AND ENTIRE PIZZA AND A LITER OF COLA AT BEDTIME AFTER EATING DINNER FROM HOSPITAL. HE DOES NOT WANT TO TALK ABOUT BLOOD GLUCOSE CONTROL. HE ASKS FOR EXTRA INSULIN FOR EATING EXTRA FOOD.
[2021-02-16 05:00] VITALS: BP 135/78
[2021-02-16 07:43] VITALS: BP 147/91
[2021-02-16 22:03] VITALS: BP 141/87
[2021-02-17 00:02] VITALS: BP 140/49
--- NOTE | 2021-02-17 02:34 | NUR ---
TRANSFER TO 512 FOR FURTHER REHAB THERAPIES. PATIENT TRANSFERS FROM W/C TO BED WITH SBA. IS ABLE TO MANAGE PROSTHESIS FOR OLD RIGHT LEG AMPUTATION. HAS NEW LEFT HEEL WEIGHT BEARING SHOE FROM HEAD BUTLER IN ROOM AND STATES HE IS LEARNING TO USE IT WITH HIS WALKER DURING PT, THEY ARE HAVING HIM NOT USE HIS CANE FROM HOME AT THIS TIME SINCE HE IS BEARING WEIGHT ON HIS HEEL
[2021-02-17 08:00] VITALS: BP 139/78
--- NOTE | 2021-02-17 14:31 | NUR ---
ASSUMED CARE AT 0700. PATIENT IS ALERT AND ORIENTED X4. PATIENT IV OUT. PATIENT HAS RIGHT LEG AMPUTEE, AND LEFT 5TH TOE AMPUTEE. DRESSING AND ANIKA INTACT ON THE LEFT FOOT. PATIENT HAS ORTHO SHOE FOR LEFT TOE. IV ACESS OUT. DR. VASQUEZ HERE TO SEE PATIENT. PICC LINE ORDERED FOR MULTIPLE IV ABT'S. FALL AND SAFETY PROTOCOLS IN PLACE. C/O PAIN IN HIS LEFT FOOD. MEDICTCAED WITH PRN PAIN MED. CONTINUES TO PROGRESS SLOWLY TOWARDS D/C GOALS. WILL CONTINUE TO MONITER.
--- NOTE | 2021-02-17 16:50 | NUR ---
Cm visited with hailey via phone call. Rechecking to see if he had checked with his ex girl friend to see if can get his dme back and if [facility] and restart when have place to stay?. Yes i can, just have to have way to get it back, need to have place less then $1000. My dog can stay with friend for while per hailey. Will cont. dcp as needed for discharge. Will cont. to discuss during weekly team meeting.
[2021-02-17 20:13] VITALS: BP 109/54
--- NOTE | 2021-02-18 04:12 | NUR ---
ASSUMED CARE APPROX 0 EVENING 02/17. PT ALERT AND ORIENTED X4, APPROPRIATE AND COOPERATIVE. BANDAGE TO LEFT FOOT C/D/I. PT VOIDING PER URINAL. PT TOOK HS MEDS WITH WATER TOLERATING WELL. PT APPEARS TO BE SLEEPING SOUNDLY. BED ALARM ON AND CALL LIGHT IN REACH. WILL CONTINUE TO MONITOR.
[2021-02-18 08:00] VITALS: BP 143/94
[2021-02-18 08:15] VITALS: BP 143/94
--- NOTE | 2021-02-18 18:07 | NUR ---
ASSUMED CARE OF PT AT 0700. PT A&OX4. PT WILLINGLY WORKS WITH THERAPIES. PT NON COMPLIANT WITH WB STATUS. RISKS AND BENEFITS EXPLAINED TO PT ABOUT BEING NON COMPLIANT. S/W PT ABOUT SMOKING CESATION AND WEIGHT LOSS. PT DOES NOT WANT TO LOSE HIS LEG. WILL CONTINUE TO MONITOR
--- NOTE | 2021-02-18 18:42 | NUR ---
CHANGED DRESSING TO FOOT. NO ORDER BUT IT IS IN THE NOTE 02/17/21. WOUND CARE NOTE IS FOLLOWS: CHANGE DAILY WITH AQUACEL AG, 4X4 GAUZE, ABD, KERLIX, ANIKA BANDAGE. AVOID MOIST DRESSINGS THAT CAN MACERATE WOUND EDGES.
[2021-02-18 23:00] VITALS: BP 150/90
--- NOTE | 2021-02-19 00:17 | NUR ---
found pt sitting on edge of bed trying to reach w/c and w/c tipped over. asked pt what he was doing and pt stated he was trying to get into w/c. pt reminded that he needs to call staff for assistance and to not try to get up by himself. reminded pt regarding safety and avoiding him falling. pt became upset and somewhat anxious with this narrative writer. pt upset about having the bed alarm on and stated he knows how to turn it off and also that he could turn the IV pump on and off if he wanted to. tried to reassure pt the alarm is for safety reasons and his well being to heal and recuperate. pt stated he has not had his bipolar meds for several days and may need to start up on those. pt also given po Lorazepam as ordered. pt now sitting up in bed waiting for a [employer] food delivery. bed alarm was turned on before leaving the room by this narrative writer. call light in reach. will continue to monitor.
[2021-02-19 07:15] VITALS: BP 132/82
[2021-02-19 16:42] LABS: ABSOLUTE NEUTROPHILS 7.6 thou/uL (1.4-8.2); BASOPHILS 0.7 % (0.0-2.0); EOSINOPHILS 1.7 % (0.0-3.0); HEMOGLOBIN 12.9 gm/dL (14.0-18.0); LYMPHOCYTES 12.9 % (24.0-44.0); MCH 27.2 pg (26.0-34.0); MCHC 32.3 g/dL (28.0-37.0); MCV 84.2 fL (80.0-100.0); MONOCYTES 8.1 % (1.0-8.0); PLATELET COUNT 215 thou/uL (150-400); POLYS 76.6 % (36.0-66.0); RBC 4.75 mil/uL (4.50-6.00)
[2021-02-19 17:01] LABS: ALBUMIN 2.8 g/dL (3.4-5.0); CALCIUM 8.5 mg/dL (8.5-10.1); MAGNESIUM 1.6 mg/dL (1.8-2.4); POTASSIUM 3.9 mmol/L (3.5-5.1); TOTAL BILIRUBIN 0.3 mg/dL (0.2-1.0); TOTAL PROTEIN 6.7 g/dL (6.4-8.2)
--- NOTE | 2021-02-19 17:24 | NUR ---
ASSUMED CARE OF PT AT 0700. PER REPORT PT WANTED TO SLEEP UNTIL 0800. PT PLEASANT AND COOPERATIVE. PT WORKED WITH THERAPY TODAY. ULTRASOUND DONE TO L UPPER ARM DUE TO REDNEESS, SWELLING, AND WARMTH. WILL CONTINUE TO MONITOR.
[2021-02-19 19:49] VITALS: BP 136/53
[2021-02-20 07:04] LABS: BASOPHILS 0.8 % (0.0-2.0); EOSINOPHILS 2.1 % (0.0-3.0); HEMATOCRIT 37.6 % (42.0-52.0); HEMOGLOBIN 12.3 gm/dL (14.0-18.0); LYMPHOCYTES 14.6 % (24.0-44.0); MCH 27.5 pg (26.0-34.0); MCHC 32.7 g/dL (28.0-37.0); MCV 84.1 fL (80.0-100.0); MONOCYTES 8.5 % (1.0-8.0); PLATELET COUNT 187 thou/uL (150-400); RBC 4.47 mil/uL (4.50-6.00); RDW 15.2 % (10.5-14.5); WBC 9.5 thou/uL (4.0-11.0)
--- NOTE | 2021-02-20 07:22 | NUR ---
ASSUMED CARE AT 1900 OF 02/19. PATIENT IS A&OX4, DENIED PAIN OR SOB. PICC LINE IN LEFT UPPER ARM IN PLACE, INTACT AND PATENT. BLOOD DRAW PREFORMED THIS AM W/O ISSUES, FLUSHED WITH 20CC OF NS. PATIENT EXPRESSED SOME ANXIOUS FEELINGS ABOUT DCP AT HS, TIME AND SPACE PROVIDED FOR PATIENT TO EXPRESS HIMSELF. PRN LORAZEPAM ADMINISTERED. PATIENT REFUSED HIS SCHEDULED HYDROCODONE, AND EXPRESSED THAT HE DOESNT WANT TO TAKE IT UNLESS HE FEELS LIKE HE NEEDS TO TAKE IT. IV ANTIBIOTICS AND SUPPLEMENTAL MAGNESIUM ADMINISTERED OVERNIGHT. PATIENT TOLERATED BOTH WELL. MULTIPLE DRUM SANDER HELPER PROVIDER CLARIFIED THAT IT IS OKAY TO RUN IV MEDICATION THROUGH PICC LINE AFTER POSITIVE US RESULTS FOR THROMBOLISIS IN FOREARM. PATIENT DENIES PAIN DURING FLUSHES OR BLOOD DRAW. DENIES CHEST PAIN OR DISCOMFORT. URINAL AT BED SIDE, CALL LIGHT WITHIN REACH. WILL CONTINUE TO MONITOR.
[2021-02-20 07:32] LABS: CALCIUM 8.8 mg/dL (8.5-10.1); POTASSIUM 3.7 mmol/L (3.5-5.1)
--- NOTE | 2021-02-20 09:57 | NUR ---
chart review and voice message from physical therapy about wt bearing status and ability to walk and do stairs. Cm consult to look at skilled rehab. Cm visited with hailey at bedside. Cm cont to wear face mask and shield during visit. education on short term rehab. referral to be sent to [facility]. Anticipated dc 02/21/21.
--- NOTE | 2021-02-20 15:33 | NUR ---
FAXED SNF REFERRAL WITH POSITIVE COVID RESULT (02/07/21) TO [facility]; [facility]; AND [facility] WITH NOTATION OF DISCHARGE TOMORROW, 02/21/21. WILL CONFIRM THEY RECEIVED AND BED AVAILABILITY. [facility] P [phone]; FAX [phone] [facility] P [phone]; FAX [phone] [facility] P [phone]; FAX [phone]
--- NOTE | 2021-02-20 18:50 | NUR ---
PT TOLERATED THERAPIES WELL, AND AMBULATED SHORT DISTANCES. DR. HALL IN TO SEE FOOT WOUND TODAY, AND AREA RE-DRESSED PER PHYSICAL THERAPIST. NOTED THAT LEFT AC PICC LINE NEEDS STERILE DRESSING CHANGE, IT IS PEELING UP. THIS WILL BE CHANGED AFTER SHIFT CHANGE REPORT. PT COMPLIANT WITH PROGRAM, AND VERBALIZED FEAR THAT HE WILL NOT HAVE ANYWHERE TO GO AT DISCHARGE. REASSURED HIM THAT THIS WAS NOT THE CASE, AND THAT THE CM IS WORKING ON THINGS. PT NOTED THAT HE DROPPED HIS GLUCOMETER, AND ASKED IF INSURANCE WOULD SUPPLY HIM WITH A NEW ONE. THIS QUESTION WAS TEXT TO CM FOR TOMORROW.
[2021-02-20 19:33] VITALS: BP 149/96
--- NOTE | 2021-02-21 05:55 | NUR ---
02-20-21 CARE TRANSFERRED 1899. PT AAOX4, VSS, RR EVEN AND NONLABORED ON RA, PT REPORTS PAIN IS BEING MANAGED WITH MEDICATION. PER REPORT PT L. PICC LINE DRESSING CHANGED, C/D/P. PT HAS TOLERATED ANTIBOTIC THERAPY WELL. PT PRESENTS ANXIOUS OVER HOMELESSNESS. PT ALSO DISCUSSED NEEDING A GLUCOMETER FOR HIS IS MISSING AND LOOKING AT [facility]. PT HAS BEEN CALM AND COOPERATIVE WITH ALL CARES. PT WILL CONTINUE TO BE MONITOR PER 5NR PROTOCOL.
[2021-02-21 07:15] VITALS: BP 127/60
--- NOTE | 2021-02-21 11:41 | NUR ---
WOUND CONSULT; THE RN TODAY DICUSSED THE FACT THAT THIS PATIENT HAS HAD A TOE AMPUTATION SURGERY BY DR TRAMMELL. THERE WERE NO ORDERS. THE PATIENT WAS SEEN BY DR EFREM NAJERA FOR THIS BUT SIGNED OFF BECAUSE DR TRAMMELL WAS INVOLVED. DR TRAMMELL NOTE CONTAINED HIS ORDERS. THE RN TODAY WILL COMPLY WITH THESE ORDERS. NO NEED TO FOLLOW AT THIS TIME.
--- NOTE | 2021-02-21 13:10 | NUR ---
Nutrition followup: pt continues on rehab unit S/P left 5th toe amputation. Hx Right BKA and food noncompliance. Currently on 1800 calorie level. Requesting 1 additional carb at 2 meals/daily. Seems reasonable considering pt size to increase kcal level to 2000 Carb controlled. BG [id number]. On SSI, metformin. Vitamin D deficiency-on supplement, also folic acid, zinc sulfate and ascorbic acid. Pt eating 100% of meals, orders meals and assures HBV protein foods at meals. Drinks Brandon BID, prefers orange-noted. Pt voiced no diet related questions at this time. CM working on D/C plan due to pt homelessness. Low nutrition risk with interventions in place.
--- NOTE | 2021-02-21 14:00 | NUR ---
Team meeting, recommendation: 25ft fww with assist and prothesis on left. Cont. to look place for him to dc, skilled. Cont. with IV abx.
[2021-02-21] MEDS ORDERED: HYDROCODON-ACE1 EAC7 PO (15:05)
--- NOTE | 2021-02-21 15:48 | NUR ---
ASSUMED CARE OF PT AT 0700. PT WILLINGLY WORKS WITH THERAPIES NON COMPLIANT WITH WEIGHT BEARING STATUS TO LEFT FOOT. PICC LINE IN PLACE IV ABT GIVEN ORDERED. PO PAIN PILLS FOR PAIN CONTROL. WILL CONTNIUE TO MONITOR.
[2021-02-21 19:45] VITALS: BP 156/97
--- NOTE | 2021-02-22 03:26 | NUR ---
ASSUMED CARE AT 1900 OF 02/21. PATIENT IS A&OX4, REPORTED PAIN IN LEFT FOOT AND TOE. PAIN MANAGED WITH PRN HYDROCODONE. PICC LINE IN PLACE AND INTACT IN LEFT UPPER ARM. PICC DRESSING C/D/I. IV ANTIBIOTICS ADMINISTER, TOLERATED WELL BY PATIENT. LEFT TOE DRESSING IN PLACE AND INTACT. URINAL PLACED AT BEDSIDE. PATIENT CONTINUES TO EXPRESS ANXIOUS FEELING ABOUT HIS FUTURE AFTER DISCHARGE, PATIENT IS OFFERED TIME TO EXPRESS HIMSELF. DISTRACTION AND PRN LORAZEPAM ADMINISTERED. APPEARS TO BE SLEEPING DURING HOURLY ROUNDS, CALL LIGHT WITHIN REACH. WILL CONTINUE TO MONITOR.
[2021-02-22 08:00] VITALS: BP 150/102
--- NOTE | 2021-02-22 08:41 | NUR ---
skilled referral sent to [facility] for iv abx and wt bearing status for cont therapy.
[2021-02-22 18:26] VITALS: BP 150/102
--- NOTE | 2021-02-22 19:04 | NUR ---
PT NON COMPLIANT WITH WEIGHT BEARING STATUS TO L FOOT. IV ABT GIVEN ORDERED. WILL CONTNIUE TO MONITOR
[2021-02-22 19:21] VITALS: BP 151/104
[2021-02-22 21:00] VITALS: BP 139/78
--- NOTE | 2021-02-23 04:25 | NUR ---
ASSUMED CARE AT 1900 OF 02/22. PATIENT IS A&OX4, EXHIBITING ANXIOUS FEELINGS ABOUT WHERE HE IS GOING TO LIVE AFTER DISCHARGE. PATIENT WAS HEARD YELLING ON THE PHONE AND WHEN NURSE WENT IN TO CHECK ON HIM HE SEEMED FURSTRATED. TIME AND SPACE PROVIDED FOR PATIENT TO EXPRESS HIS FEELINGS. BP AND HR ELEVATED AT START OF SHIFT DUE TO ANXIETY, PATIENT REQUESTED TO BE LEFT ALONE SO HE COULD COME DOWN. VS LATER RECHECKED AND BP HAS COME DONE TOWARDS BASELINE. DISTRACTIONS SUGGESTED , AND PRN LORAZEPAM ADMNISTERED AT HS. PICC LINE IN PLACE ON LEFT UPPER ARE, DRESSING C/D/I. LINE IS PATENT, FLUSHED AND SWABCAP APPLIED POST ADMINISTRATION OF IV VANCOMYCIN. PATIENT TOLERATED MEDICATIONS WELL. URINALS PLACE AT BED SIDE, CALL LIGHT W/IN REACH, SLEEPING DURING HOURLY ROUNDS. WILL CONTINUE TO MONITOR.
[2021-02-23 08:00] VITALS: BP 144/81
[2021-02-23 09:30] VITALS: BP 144/81
--- NOTE | 2021-02-23 09:30 | NUR ---
[facility]ed to [facility] for skilled referrals. Call [facility] x 2 to see if they got the referral that was sent yesterday.
--- NOTE | 2021-02-23 12:55 | NUR ---
ASSUMED CARE OF PT AT 0700. PT RESTING IN BED WITH EYES CLOSED. PT A&OX4. PT IV ABT GIVEN ORDERED. THIS NURSE CALLED ID TO SEE HOW MUCH LONGER PT NEEDS TO BE ON IV ABT. AWAITING CALL BACK AT THIS TIME. PT WILLINGLY WORKED WITH THERAPIES. WILL CONTNIUE TO MONITOR
[2021-02-23] MEDS ORDERED: VANCOMYCIN1.25 GM/12 IV (14:27)
[2021-02-23] MEDS ORDERED: NOVOLOG100 UNIT/1 SUBQ (14:27)
[2021-02-23] MEDS ORDERED: ACEROLA C500 MG PO (14:27)
[2021-02-23] MEDS ORDERED: ENOXAPARIN60 MG/0.1 SUBQ (14:27)
[2021-02-23] MEDS ORDERED: FOLIC ACID1 MG PO (14:27)
[2021-02-23] MEDS ORDERED: EFFEXOR XR37.5 MG PO (14:27)
[2021-02-23] MEDS ORDERED: ROCEPHIN 11 GM/1001 IV (14:30)
[2021-02-23 20:00] VITALS: BP 161/109
--- NOTE | 2021-02-24 05:15 | NUR ---
ASSUMED CARE OF PT AT 1930 ON 02/23/21. PT IS A&OX4. IS ON ROOM AIR. REPORTS PAIN IN LEFT TOE AMPUTATION. DRSG C/D/I. 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 PAIN IS BEING MANAGED WITH ORAL PAIN MEDS & OTHER THERAPUETIC TECHNIQUES. HAS RBKA WITH PROSTHETIC. IS UP WITH 1 STANDBY ASSIST, GB, WALKER. FALL PRECAUTIONS & HOURLY ROUNDING CONTINUED THIS SHIFT. LABS & VITALS REVIEWED. WILL CONTINUE TO MONITOR. PT HAS SHANNON SINGLE LUMEN PICC IN PLACE. CALL LIGHT WITHIN REACH.
[2021-02-24 08:00] VITALS: BP 162/79
--- NOTE | 2021-02-24 08:39 | NUR ---
Faxed dc order and sum to [facility]. Bedside nurse to call report to [phone]. Send chart copy with hailey. Facility will set up wheel chair transportation for dc today.
[2021-02-24 09:40] LABS: ABSOLUTE NEUTROPHILS 5.2 thou/uL (1.4-8.2); EOSINOPHILS 2.5 % (0.0-3.0); HEMATOCRIT 40.1 % (42.0-52.0); HEMOGLOBIN 12.8 gm/dL (14.0-18.0); LYMPHOCYTES 14.7 % (24.0-44.0); MCH 26.9 pg (26.0-34.0); MCHC 31.9 g/dL (28.0-37.0); MCV 84.2 fL (80.0-100.0); MONOCYTES 8.5 % (1.0-8.0); PLATELET COUNT 195 thou/uL (150-400); POLYS 73.3 % (36.0-66.0); RBC 4.77 mil/uL (4.50-6.00); RDW 15.3 % (10.5-14.5); WBC 7.1 thou/uL (4.0-11.0)
[2021-02-24 09:58] LABS: CALCIUM 8.6 mg/dL (8.5-10.1); CREATININE 0.9 mg/dL (0.7-1.3); POTASSIUM 3.8 mmol/L (3.5-5.1); TOTAL BILIRUBIN 0.3 mg/dL (0.2-1.0); TOTAL PROTEIN 6.9 g/dL (6.4-8.2)
--- NOTE | 2021-02-24 12:30 | NUR ---
LEFT FOOT WAS UNDRESSED AND OBSERVED PER DR. HALL THIS AM. PT TOLERATED WELL. PT REFUSED BREAKFAST BUT WAS GIVEN SNACKS IN THE AM, REFUSED LUNCH BUT WAS GIVEN PUDDING, MILK, AND APPLESAUCE PER RN TO COVER BLOOD SUGAR NEEDS HE RECEIVED INSULIN. PICC LINE FLUSHED AFTER VANCOMYCIN AND NEW ORANGE CAP APPLIED. PT UP TO BR AFTER DRESSING WAS CHANGED AND HAD A CONTINENT BM WHICH HE MANAGED HIMSELF. RN ATTEMPTED TO CALL REPORT TWICE TO [facility], BUT RN NEVER CALLED BACK FOR REPORT, AND FACILITY COULD NOT LOCATE A PERSON TO TAKE REPORT EITHER TIME RN ATTEMPTED TO CALL. DETAILED DISCHARGE INSTRUCTIONS WERE SENT WITH THE PATIENT, WELL PRESCRIPTIONS AND SUPPLIES FOR WOUND CARE. PT IS ALERT AND ORIENTED AND DIRECTS HIS OWN CARE WELL. PT LEFT THE UNIT WITH TRANSPORTER VIA .
== END 2021-02-24 12:45 | DRG 602 ==
LOC: 3W 17:42 → TBACV 02-14 13:39 → 3W 02-14 13:42
PROVIDERS: Internal Medicine; Nurse Practitioner Family; Specialist; ADMIT Physical Medicine & Rehabilitation; ATTEND Physical Medicine & Rehabilitation
PROC: 05HY33Z Insertion of Infusion Device into Upper Vein, Percutaneous Approach (ICD-10-PCS; principal; 2021-02-18)
DX: L03.032 Cellulitis of left toe (principal); U07.1 COVID-19; M31.9 Necrotizing vasculopathy, unspecified; M86.8X8 Other osteomyelitis, other site; I82.612 Acute embolism and thrombosis of superficial veins of left upper extremity; Z68.43 Body mass index [BMI] 50.0-59.9, adult; R53.81 Other malaise; E66.01 Morbid (severe) obesity due to excess calories; E11.42 Type 2 diabetes mellitus with diabetic polyneuropathy; E11.65 Type 2 diabetes mellitus with hyperglycemia; E11.319 Type 2 diabetes mellitus with unspecified diabetic retinopathy without macular edema; F31.9 Bipolar disorder, unspecified; E11.69 Type 2 diabetes mellitus with other specified complication; L53.9 Erythematous condition, unspecified; E11.51 Type 2 diabetes mellitus with diabetic peripheral angiopathy without gangrene; T38.0X5A Adverse effect of glucocorticoids and synthetic analogues, initial encounter; Y92.89 Other specified places as the place of occurrence of the external cause; Z89.511 Acquired absence of right leg below knee; Z91.19 Patient's noncompliance with other medical treatment and regimen; Z79.4 Long term (current) use of insulin; Z89.422 Acquired absence of other left toe(s)
CPT/HCPCS: 10112; 10779; 27000